=== PATIENT | female | born 1985 | race Caucasian/White ===

== ENCOUNTER 2023-01-09 17:36 | Emergency (ER) | payer BC ==
--- NOTE | 2023-01-09 17:59 | ED Physician Documentation ---
PD HPI FEMALE - Stated complaint Stated Complaint: FEMALE - Chief complaint Chief Complaint: Abd Pain - History obtained from History obtained from: Patient - Additional information Additional information: Otherwise healthy 37-year-old woman who is sexually active but her has had a vasectomy presents for the evaluation of vaginal bleeding. Her menses started 2 days ago at the normal time with normal flow but became quite heavy today. There is no significant cramps. PD PAST MEDICAL HISTORY - Present Medications Home Medications: Ambulatory Orders Medication Instructions Recorded Confirmed Medroxyprogesterone Acetate 4 tab PO TID #90 tablet 01/09/23 [Provera] - Allergies Allergies/Adverse Reactions: Allergies Allergy/AdvReac Type Severity Reaction Status Date / Time No Known Drug Allergies Allergy Verified 01/09/23 17:46 PD ED PE NORMAL - Vitals Vital signs reviewed: Yes - General General: Alert and oriented X 3, No acute distress - Abdomen Abdomen: Non tender - Neuro Neuro: Alert and oriented X 3, Normal speech Results - Vitals Vitals: Vital Signs - 24 hr 01/09/23 17:43 Temperature 36.7 C Heart Rate 86 Respiratory 16 Rate Blood Pressure 135/80 H O2 Saturation 100 Oxygen O2 Source Room air - Labs Labs: Laboratory Tests 01/09/23 01/09/23 01/09/23 17:50 17:56 17:56 WBC 4.8 RBC 3.90 L Hgb 12.5 Hct 36.7 L MCV 94.1 MCH 32.1 H MCHC 34.1 RDW 11.7 L Plt Count 239 MPV 10.7 Neut # (Auto) 2.5 Lymph # (Auto) 1.8 Cobb # (Auto) 0.3 Eos # (Auto) 0.1 Baso # (Auto) 0.0 Absolute Nucleated RBC 0.00 Nucleated RBC % 0.0 Sodium 139 Potassium 3.3 L Chloride 104 Carbon Dioxide 27 Anion Gap 8.0 BUN 18 Creatinine 0.8 Estimated GFR (MDRD) 81 L Glucose 104 H Calcium 9.6 Urine HCG, Qual NEGATIVE PD Medical Decision Making - ED course ED course: 37-year-old woman with abnormal vaginal bleeding with a negative test, normal hemodynamics and normal H&H. We will start Provera noting that she wanted to avoid estrogen containing supplements given family history of breast cancer. Departure - Departure Disposition: 01 Home, Self Care Clinical Impression: Abnormal uterine bleeding Condition: Good Record reviewed to determine appropriate education?: Yes Instructions: ED Bleed Irregular Vaginal Prescriptions: Medroxyprogesterone Acetate [Provera] 4 tab PO TID #90 tablet Comments: Follow-up with your engine tester on return home. Return for new or worsening symptoms. Blood work and test were unremarkable.
[2023-01-09 18:02] LABS: BASOPHILS % (AUTO) 0.8 %; EOSINOPHILS # (AUTO) 0.1 10^3/uL (0.0-0.7); EOSINOPHILS % (AUTO) 2.1 %; HCT - HEMATOCRIT 36.7 % (37.0-47.0); HGB - HEMOGLOBIN 12.5 g/dL (12.0-16.0); LYMPHOCYTES # (AUTO) 1.8 10^3/uL (1.5-3.5); LYMPHOCYTES % (AUTO) 37.4 %; MEAN CORPUSCULAR HEMOGLOBIN 32.1 pg (27.0-31.0); MEAN CORPUSCULAR HGB CONC 34.1 g/dL (32.0-36.0); MEAN CORPUSCULAR VOLUME 94.1 fL (81.0-99.0); MEAN PLATELET VOLUME 10.7 fL (7.9-10.8); MONOCYTES # (AUTO) 0.3 10^3/uL (0.0-1.0); MONOCYTES % (AUTO) 7.1 %; NEUTROPHILS # (AUTO) 2.5 10^3/uL (1.5-6.6); NEUTROPHILS % (AUTO) 52.6 %; PLT - PLATELET COUNT 239 10^3/uL (130-450); RED CELL DISTRIBUTION WIDTH 11.7 % (12.0-15.0); WHITE BLOOD COUNT 4.8 x10^3/uL (4.8-10.8)
[2023-01-09 18:05] LABS: HCG UR QUAL NEGATIVE
[2023-01-09 18:11] LABS: CALCIUM 9.6 mg/dL (8.5-10.3); CREATININE 0.8 mg/dL (0.4-1.0); POTASSIUM 3.3 mmol/L (3.5-5.0)
[2023-01-09 18:45] VITALS: BP 127/77
== END 2023-01-09 18:45 | disposition home or self-care (01) ==
LOC: ED 17:36
DX: N93.9 Abnormal uterine and vaginal bleeding, unspecified (principal)
CPT/HCPCS: 36415; 80048; 81025; 85025; 99283; A9270